=== PATIENT | female | born 1985 | race Hispanic/Latino ===

== ENCOUNTER 2017-07-30 10:44 | Emergency (ER) | payer MEDICAID, OTHER ==
[2017-07-30] MEDS ORDERED: ONDANSETRON ODT 4 MG TAB ONE (11:02)
[2017-07-30] MEDS ORDERED: DiphenhydrAMINE HCL 50 MG/ML VIAL ONE (11:02)
[2017-07-30 11:28] LABS: BILIRUBIN,URINE Negative (NEGATIVE); COLOR,URINE Dark Yellow (YELLOW); GLUCOSE, URINE (UA) Negative (NEGATIVE); KETONES,URINE >=80 mg/dL (NEGATIVE); LEUKOCYTE ESTERASE ,URINE Negative (NEGATIVE); NITRATE,URINE Negative (NEGATIVE); OCCULT BLOOD,URINE Nonhemolyzed Trace (NEGATIVE); PH,URINE 5.5 (5.0-8.0); PROTEIN,URINE POS 1+ (NEGATIVE)
[2017-07-30 11:30] LABS: HCG,QUAL RESULT NEGATIVE (NEGATIVE)
[2017-07-30 11:39] LABS: APPEARANCE,URINE CLOUDY (CLEAR)
[2017-07-30] MEDS ORDERED: KETOROLAC TROMETHAMINE 30MG/ML ONE (11:45)
[2017-07-30 11:58] LABS: BACTERIA,URINE Few /HPF (None Seen); MUCUS,URINE Few LPF (None Seen); SQUAMOUS EPITHELIAL CELL,UR Rare /HPF (0-2); WBC,URINE 0-1 /HPF (0-1)
== END 2017-07-30 12:03 | disposition home or self-care (01) ==
LOC: EDH 10:44
DX: G43.909 Migraine, unspecified, not intractable, without status migrainosus (principal); R11.2 Nausea with vomiting, unspecified; Z98.890 Other specified postprocedural states; Z72.0 Tobacco use
CPT/HCPCS: 81001; 81025; 96372 ×2; 99284; J1200; J1885

== ENCOUNTER 2023-08-19 20:33 | Emergency (ER) | payer MEDICAID, OTHER ==
[~2023-08-19] VITALS: Ht 154.9 cm; Wt 85.7 kg
[2023-08-19] MEDS ORDERED: IBUP-2070 PO (22:01)
[2023-08-19 22:07] VITALS: BP 118/76; PULSE 80; RESP 16; O2SAT 98
[2023-08-19] MEDS: HYDROCODONE/ACETAMINOPHEN 5/325 MG TAB PO ONE (22:07)
== END 2023-08-19 22:29 | disposition home or self-care (01) ==
LOC: EDH 20:33
DX: S83.8X2A Sprain of other specified parts of left knee, initial encounter (principal); Z98.890 Other specified postprocedural states; X58.XXXA Exposure to other specified factors, initial encounter; Y93.89 Activity, other specified; Y92.89 Other specified places as the place of occurrence of the external cause; Y99.8 Other external cause status
CPT/HCPCS: 29505; 73562

== ENCOUNTER → 2023-11-07 | Emergency (ER) | payer OTHER ==
[~2023-11-07] VITALS: Ht 154.9 cm; Wt 84.4 kg
[~2023-11-07] MED LIST: IBUP-2070 PO
[2023-11-07 13:26] VITALS: BP 116/77; PULSE 95; RESP 14
== END ==
LOC: EDH 13:15
DX: R10.2 Pelvic and perineal pain (principal); Z53.21 Procedure and treatment not carried out due to patient leaving prior to being seen by health care provider